=== PATIENT | male | born 1945 | race Caucasian/White ===

== ENCOUNTER 2017-09-11 16:02 | Emergency (ER) | payer MEDICARE, BC ==
[2017-09-11] MEDS ORDERED: Acetaminophen/HYDROcodone 325-10 MG Tab PO ONE (16:30)
[2017-09-11] MEDS ORDERED: Cyclobenzaprine 10 MG Tab PO ONE (16:31)
[2017-09-11] MEDS ORDERED: Bacitracin Oint 1 GM U/D Packet TOP ONE (16:34)
--- NOTE | 2017-09-11 17:49 | EDM.PDOC ---
Scribed by Kae Rios 09/11/17 3752 for Fred Parra MD ED HPI GENERAL MEDICAL PROBLEM - General Chief Complaint: Lower Extremity Injury/Pain Stated Complaint: FELL OFF LADDER.BACK [id number] Time Seen by Provider: 09/11/17 16:13 Source of Information: Reports: Patient, RN, RN Notes Reviewed History Limitations: Reports: No Limitations - History of Present Illness INITIAL COMMENTS - FREE TEXT/NARRATIVE: Patient presents to ER with complaint of pain to the right back and ribs sustained approximately 2 to 3 hours ago when patient fell from an aluminum ladder. Patient was coming off the roof, down the ladder and had the ladder on the deck. The base of the ladder slipped off the deck onto the lawn causing the patient to fall backwards onto his back. Denies head injury, neck pain or loss of consciousness. He has increased pain with breathing. Denies radiating pain or hematuria. Onset: Today Duration: Getting Worse Location: Reports: Back Quality: Reports: Ache Severity: Severe Improves with: Reports: None Worsens with: Reports: None Associated Symptoms: Reports: No Other Symptoms Right Flank Pain Score (Numeric/FACES): 8 - Related Data Allergies Allergy/AdvReac Type Severity Reaction Status Date / Time No Known Allergies Allergy Verified 09/11/17 16:07 Home Meds: Home Meds Aspirin [Sandra Chewable] 81 mg PO DAILY 09/11/17 [History] Benazepril/Hydrochlorothiazide [Lotensin Hct 10-12.5 mg Tablet] 1 each PO DAILY 09/11/17 [History] Cholesterol Medication 0 mg PO DAILY 09/11/17 [History] Fish Oil/[place]-3 Fatty Acids [Fish Oil] 1 each PO DAILY 09/11/17 [History] Naproxen Sodium [Aleve] 220 mg PO ASDIRECTED PRN 09/11/17 [History] ED ROS GENERAL - Review of Systems Review Of Systems: ROS reveals no pertinent complaints other than HPI. ED EXAM,LOWER BACK PAIN/INJURY - Physical Exam Exam: See Below Exam Limited By: No Limitations General Appearance: Alert, WD/WN, No Apparent Distress Eye Exam: Bilateral Eye: Normal Inspection Ears: Other (left ear normal. Right ear chronic post surgical deformity.) Nose: Normal Inspection, Normal Mucosa, No Blood Throat/Mouth: Normal Inspection, Normal Lips, Normal Teeth, Normal Gums, Normal Oropharynx, Normal Voice, No Airway Compromise Head: Atraumatic, Normocephalic Neck: Normal Inspection, Supple, Non-Tender, Full Range of Motion Respiratory/Chest: No Respiratory Distress, Lungs Clear, Normal Breath Sounds, No Accessory Muscle Use, Other (mild tenderness to mid thoracic posterior lateral chest wall/ribs without visible swelling or deformity. Skin is intact.) Cardiovascular: Regular Rate, Rhythm, Systolic Murmur (2/6) GI/Abdominal: Normal Bowel Sounds, Soft, Non-Tender, No Organomegaly, No Distention, No Abnormal Bruit, No Mass (Male) Exam: Deferred Rectal (Males) Exam: Deferred Back Exam: Decreased Range of Motion (thoracolumbar), Muscle Spasm (thoracic), Paraspinal Tenderness (thoracic right greater than left.), Vertebral Tenderness (mild thoracic.). No: CVA Tenderness (L), CVA Tenderness (R) Extremities: Normal Range of Motion, Normal Capillary Refill. No: Joint Swelling Neurological: Alert, Normal Mood/Affect, CN II-XII Intact, No Motor/Sensory Deficits, Oriented x 3 Psychiatric: Normal Affect, Normal Mood Skin Exam: Wound/Incision (right elbow superficial abrasion with bruising. No active bleeding. No foreign body. ) Course - Vital Signs Last Recorded V/S: Last Vital Signs Temp 37.4 C 09/11/17 16:08 Pulse 71 09/11/17 16:08 Resp 18 09/11/17 16:08 BP 147/75 H 09/11/17 16:08 Pulse Ox 100 09/11/17 16:08 - Orders/Labs/Meds Orders: Active Orders 24 hr Category Date Time Status Ribs 2V wo Chest Rt [CR] Stat Exams 09/11/17 16:31 Taken Thoracic Spine 2V [CR] Stat Exams 09/11/17 16:31 Taken Labs: Laboratory Tests 09/11/17 Range/Units 16:15 Urine Color Dark yellow (YELLOW) Urine Appearance Slightly cloudy (CLEAR) Urine pH 7.0 (5.0-9.0) Ur Specific [place] 1.020 (1.005-1.030) Urine Protein Trace H (NEGATIVE) Urine Glucose (UA) Negative (NEGATIVE) Urine Ketones Negative (NEGATIVE) Urine Occult Blood Negative (NEGATIVE) Urine Nitrite Negative (NEGATIVE) Urine Bilirubin Negative (NEGATIVE) Urine Urobilinogen 1.0 (0.2-1.0) mg/dL Ur Leukocyte Esterase Negative (NEGATIVE) Urine RBC 0-5 /HPF Urine WBC Not seen (0-5/HPF) /HPF Ur Epithelial Cells Rare /HPF Urine Bacteria Rare (0-FEW/HPF) /HPF Urine Mucus Rare /LPF Meds: Medications Discontinued Medications Generic Name Dose Route Start Last Admin Trade Name Freq PRN Reason Stop Dose Admin Hydrocodone Bitart/Acetaminophen 1 tab 09/11/17 16:30 09/11/17 16:38 [place] 325-10 Mg PO 09/11/17 16:31 1 tab ONETIME ONE Administration Bacitracin 1 dose 09/11/17 16:34 09/11/17 16:38 Bacitracin Oint 1 Gm TOP 09/11/17 16:35 1 dose ONETIME ONE Administration Cyclobenzaprine HCl 10 mg 09/11/17 16:31 09/11/17 16:38 Flexeril PO 09/11/17 16:32 10 mg ONETIME ONE Administration - Radiology Interpretation Free Text/Narrative:: Rib x-ray: No fracture. See rad report. Spine x-ray: No fracture. See rad report. Departure - Departure Time of Disposition: 17:45 Disposition: Home, Self-Care 01 Condition: Good Clinical Impression: Chest wall contusion Qualifiers: Encounter type: initial encounter Laterality: right Qualified Code(s): S20.211A - Contusion of right front wall of thorax, initial encounter Strain of thoracic region Qualifiers: Encounter type: initial encounter Qualified Code(s): S29.019A - Strain of muscle and tendon of unspecified wall of thorax, initial encounter Fall from ladder Qualifiers: Encounter type: initial encounter Qualified Code(s): W11.XXXA - Fall on and from ladder, initial encounter - Discharge Information Instructions: Contusion, [id number], Thoracic Strain, [id number] Referrals: Neal Austin MD [Primary Care Provider] - Forms: ED Department Discharge Additional Instructions: RX: Cyclobenzaprine 10mg. *DO NOT DRIVE WHILE UNDER THE INFLUENCE OF THIS MEDICATION. RX: Ibuprofen 600mg take with food. Light activity as tolerated. Follow up in clinic next 7 to 10 days if not improving as expected. - My Orders Last 24 Hours: My Active Orders 09/11/17 16:31 Ribs 2V wo Chest Rt [CR] Stat Thoracic Spine 2V [CR] Stat - Assessment/Plan Last 24 Hours: My Active Orders 09/11/17 16:31 Ribs 2V wo Chest Rt [CR] Stat Thoracic Spine 2V [CR] Stat I have read and agree with the documentation that has been completed regarding this visit. By signing this record, I attest that the documentation was completed in my physical presence and is an accurate record of the encounter.
== END 2017-09-11 17:55 | disposition home or self-care (01) ==
LOC: DL.ED 16:02
DX: S23.3XXA Sprain of ligaments of thoracic spine, initial encounter (principal); S20.211A Contusion of right front wall of thorax, initial encounter; S50.311A Abrasion of right elbow, initial encounter; Z79.899 Other long term (current) drug therapy; W11.XXXA Fall on and from ladder, initial encounter; Z79.82 Long term (current) use of aspirin
CPT/HCPCS: 71100; 72070; 81001; 99283; A9270; 99284

== ENCOUNTER 2017-11-11 13:19 | Emergency (ER) | payer MEDICARE, BC ==
[2017-11-11] MEDS ORDERED: Lidocaine 1% 30 ML SDV INJECT ONE (13:58)
[2017-11-11] MEDS ORDERED: Bacitracin Oint 1 GM U/D Packet TOP ONE (13:58)
[2017-11-11] MEDS ORDERED: Clindamycin HCl 150 MG Cap PO ONE (13:59)
--- NOTE | 2017-11-11 14:17 | EDM.PDOC ---
Scribed by Kae Rios 11/11/17 1402 for Fred Parra MD ED HPI GENERAL MEDICAL PROBLEM - General Chief Complaint: Upper Extremity Injury/Pain Stated Complaint: [id number] BUMP ON ELBOW Time Seen by Provider: 11/11/17 13:34 Source of Information: Reports: Patient, RN, RN Notes Reviewed History Limitations: Reports: No Limitations - History of Present Illness INITIAL COMMENTS - FREE TEXT/NARRATIVE: Patient presents to ER with right elbow swelling after being on ground supported on right elbow. No specific injury. Swelling began 1 day after being on the elbow. Denies fever or chills. Tetanus is up to date (<10 years). Onset: Gradual Duration: Getting Worse Location: Reports: Upper Extremity, Right Quality: Reports: Ache Severity: Moderate Improves with: Reports: None Worsens with: Reports: None Associated Symptoms: Reports: No Other Symptoms - Related Data Allergies Allergy/AdvReac Type Severity Reaction Status Date / Time No Known Allergies Allergy Verified 11/11/17 13:25 Home Meds: Home Meds Aspirin [Sandra Chewable] 81 mg PO DAILY 09/11/17 [History] Benazepril/Hydrochlorothiazide [Lotensin Hct 10-12.5 mg Tablet] 1 each PO DAILY 09/11/17 [History] Cholesterol Medication 0 mg PO DAILY 09/11/17 [History] Fish Oil/[place]-3 Fatty Acids [Fish Oil] 1 each PO DAILY 09/11/17 [History] Past Medical History HEENT History: Reports: None Cardiovascular History: Reports: High Cholesterol, Hypertension Respiratory History: Reports: None Genitourinary History: Reports: None Musculoskeletal History: Reports: None Neurological History: Reports: None Psychiatric History: Reports: None Endocrine/Metabolic History: Reports: None Hematologic History: Reports: None Immunologic History: Reports: None Oncologic (Cancer) History: Reports: Squamous Cell Carcinoma Social & Family History - Family History Family Medical History: Noncontributory - Tobacco Use Smoking Status *Q: Never Smoker Second Hand Smoke Exposure: No - Recreational Drug Use Recreational Drug Use: No - Living Situation & Occupation Living situation: Reports: with Family (lives with his father) Review of Systems - Review of Systems Review Of Systems: ROS reveals no pertinent complaints other than HPI. ED EXAM, GENERAL - Physical Exam Exam: See Below Exam Limited By: No Limitations General Appearance: Alert, WD/WN, No Apparent Distress Head: Atraumatic, Normocephalic Neck: Normal Inspection Respiratory/Chest: No Respiratory Distress, Lungs Clear, Normal Breath Sounds, No Accessory Muscle Use, Chest Non-Tender Cardiovascular: Normal Peripheral Pulses, Regular Rate, Rhythm Extremities: Other (Right olecranon elbow with mildly tender bursa, swollen with mild erythema. Full range of motion. Skin intact. ) Neurological: Alert, Oriented, CN II-XII Intact, Normal Cognition, Normal Gait, Normal Reflexes, No Motor/Sensory Deficits ED TRAUMA EXTREMITY PROCEDURES - Additional/Other Procedure(s) Other (Free Text) Procedure(s): Aspiration Rt olecranon bursa: Sterile technique, area cleansed and prepped with iodine. Lidocaine 1% 2cc local block. Aspirated with 18g needle with small amt. of bloody/cloudy aspirate. Bacitracin oint. and bandage applied w/coban pressure dressing. No complications. Course - Vital Signs Last Recorded V/S: Last Vital Signs Temp 37.2 C 11/11/17 13:22 Pulse 73 11/11/17 13:22 Resp 18 11/11/17 13:22 BP 157/93 H 11/11/17 13:22 Pulse Ox 98 11/11/17 13:22 - Orders/Labs/Meds Orders: Active Orders 24 hr Category Date Time Status CULTURE WOUND [RM] Stat Lab 11/11/17 14:07 Ordered Labs: Rt elbow aspirate culture: Pending Meds: Medications Discontinued Medications Generic Name Dose Route Start Last Admin Trade Name Shashiq PRN Reason Stop Dose Admin Bacitracin 1 dose 11/11/17 13:58 11/11/17 14:10 Bacitracin Oint 1 Gm TOP 11/11/17 13:59 1 dose ONETIME ONE Administration Clindamycin HCl 300 mg 11/11/17 13:59 11/11/17 14:09 Cleocin PO 11/11/17 14:00 300 mg ONETIME ONE Administration Lidocaine HCl 30 ml 11/11/17 13:58 11/11/17 14:09 Xylocaine-Mpf 1% INJECT 11/11/17 13:59 30 ml ONETIME ONE Administration Departure - Departure Time of Disposition: 14:30 Disposition: Home, Self-Care 01 Condition: Good Clinical Impression: Septic olecranon bursitis of right elbow - Discharge Information Instructions: Elbow Bursitis Forms: ED Department Discharge Additional Instructions: Rx: Clindamycin 300mg Limit repetitive use and friction to right elbow. Follow up in clinic in 3 to 4 days for recheck. Return to ER if worse at any time. - My Orders Last 24 Hours: My Active Orders 11/11/17 14:07 CULTURE WOUND [RM] Stat - Assessment/Plan Last 24 Hours: My Active Orders 11/11/17 14:07 CULTURE WOUND [RM] Stat I have read and agree with the documentation that has been completed regarding this visit. By signing this record, I attest that the documentation was completed in my physical presence and is an accurate record of the encounter.
== END 2017-11-11 14:21 | disposition home or self-care (01) ==
LOC: DL.ED 13:19
DX: M70.21 Olecranon bursitis, right elbow (principal); I10 Essential (primary) hypertension; Z79.82 Long term (current) use of aspirin
CPT/HCPCS: 20605; 87070; 99283; A9270; 10060